=== PATIENT | male | born 1975 | race Caucasian/White ===

== ENCOUNTER 2017-02-02 19:27 | Emergency (ER) | payer SELFPAY ==
[~2017-02-02] VITALS: Ht 182.9 cm; Wt 90.7 kg
[2017-02-02 20:00] LABS: BASOPHIL % 0.3 % (0-2); RED CELL DISTRIBUTION WIDTH 12.9 % (11.5-14.5)
[2017-02-02 20:03] LABS: PLATELET COUNT 85 x10^3mcL (130-400)
[2017-02-02 20:14] LABS: ALKALINE PHOSPHATASE 79 U/L (46-116); ALT/SGPT 14 U/L (16-63); AST/SGOT 25 U/L (15-37); BILIRUBIN TOTAL 0.5 mg/dL (0.20-1.00); CALCIUM 7.7 mg/dL (8.5-10.1); CARBON DIOXIDE 31.2 mmol/L (21-32); CHLORIDE SERUM 90 mmol/L (98-107); CREATININE SERUM 0.5 mg/dL (0.7-1.3); GFR1 > 60 mL/min; GLUCOSE SERUM 113 mg/dL (74-106); HDL CHOLESTEROL 39 mg/dL (40-60); LIPASE 73 IU/L (73-393); SODIUM SERUM 131 mmol/L (136-145); TOTAL PROTEIN, SERUM 6.3 g/dL (6.4-8.2)
[2017-02-02 20:22] LABS: ALBUMIN 2.6 g/dL (3.4-5.0); CHOLESTEROL 92 mg/dL (<200); CHOLESTEROL/HDL RATIO 2.4; POTASSIUM SERUM 2.6 mmol/L (3.5-5.1); TRIGLYCERIDES 493 mg/dL (<150)
[2017-02-02 20:43] LABS: FREE T4 1.05 ng/dL (0.76-1.46); T4(THYROXINE) 7.6 ug/dL (4.7-13.3)
[2017-02-02 20:44] LABS: T3 TOTAL 1.62 ng/mL
[2017-02-02 22:27] LABS: microscopic required? NO
[2017-02-02 22:50] LABS: UA SPECIFIC GRAVITY <=1.005 (1.005-1.035); urine erythrocyte NEGATIVE (NEGATIVE)
[2017-02-02 22:59] LABS: AMPHETAMINE QUAL UR NONE DETECTED (NEG <=1000)
[2017-02-03 03:16] VITALS: BP 129/70
== END 2017-02-03 03:16 | disposition home or self-care (01) ==
LOC: ED 19:27
PROVIDERS: Specialist
DX: F10.229 Alcohol dependence with intoxication, unspecified (principal); F41.9 Anxiety disorder, unspecified; R07.9 Chest pain, unspecified
CPT/HCPCS: 83880; 84439; G0480; J2060; J3411; J3475; J3480; J3490; J7030; J7050